=== PATIENT | female | born 1990 | race Caucasian/White ===

== ENCOUNTER 2021-04-14 14:57 | Outpatient (CLI) | payer BC ==
[~2021-04-14] VITALS: Ht 172.7 cm; Wt 83.2 kg
[2021-04-14 15:05] VITALS: BP 135/93; PULSE 103; TEMP 98.2
[2021-04-14] MEDS ORDERED: PRENATAL FORMU1 EAC3 PO (15:18)
--- NOTE | 2021-04-14 15:38 | NUR ---
1505 PATIENT HERE FOR COMPLAINTS THAT PANTS GOT WET AT RESTORATION TODAY AND NOT SURE WHAT IT WAS. EFM ON FHT [address] BABY VERY ACTIVE AND ACCELERATIONS NOTED. AMNIOTRACE USED TO SWAB OUTSIDE AND INSIDE VAGINA, NEGATIVE. NO SVE DONE DUE TO LOW PLACENTA AND NO CONTRACTIONS. PLACED PATIENT FLAT IN BED, NO POOLING OF FLUID NOTED IN VAGINA. DR DUNBAR CALLED AT THIS TIME. ORDERS TO LET PATIENT AMBULATE IN HALLS AND THEN RESWAB. IF NO CHANGES MAY SEND HOME TO FOLLOW UP WITH DR FERGUSON.
[2021-04-14 15:45] VITALS: BP 110/73; PULSE 107
[2021-04-14 16:15] VITALS: BP 107/69; PULSE 75
--- NOTE | 2021-04-14 16:16 | NUR ---
1545 PATIENT WALKING HALLS WITH PAD AND PANTIES ON.
--- NOTE | 2021-04-14 16:18 | NUR ---
1615 BACK TO BED, DID NOT FEEL ANY LEAKING WHILE WALKING. PAD SWABBED WITH AMNIOTRACE NEGATIVE.
[2021-04-14 16:30] VITALS: BP 106/76; PULSE 97
--- NOTE | 2021-04-14 16:32 | NUR ---
NO CHANGES AND NO LEAKING NOTED. ALL DISCHARGE INSTRUCTIONS GIVEN AT THIS TIME, VERBAL UNDERSTANDING NOTED. DENIES NEEDS. PATIENT TO FOLLOW UP WITH DR FERGUSON ON THURSDAY IN OFFICE.
== END 2021-04-14 16:39 | disposition home or self-care (01) ==
LOC: LDRO 14:57
DX: Z34.93 Encounter for supervision of normal pregnancy, unspecified, third trimester (principal); Z3A.28 28 weeks gestation of pregnancy

== ENCOUNTER 2021-06-25 06:36 | Inpatient (IN) | payer BC ==
[~2021-06-25] VITALS: Ht 170.2 cm; Wt 90.0 kg
[~2021-06-25 06:36] MED LIST: PRENATAL FORMU1 EAC3 PO
[2021-06-26] VITALS (20 sets, daily range): BP systolic 91–118; BP diastolic 47–90; PULSE 69–116; TEMP 97.9–98.2
[2021-06-26 06:00] LABS: BASO # 0.1 K/mm3 (0.0-0.2); BASO % 0.8 % (0.0-2.0); EOS # 0.2 K/mm3 (0.0-0.7); EOS % 2.6 % (0.0-4.0); GRAN # 4.6 K/mm3 (1.4-6.5); GRAN % 60.5 % (42.2-75.2); HEMOGLOBIN 13.1 g/dl (12.5-16.0); LYMPH # 2.1 K/mm3 (1.2-3.4); LYMPH % 26.9 % (20.0-51.0); MEAN CELL VOLUME 88 fl (80.0-100.0); MEAN CORPUSCULAR HEMOGLOBIN 31 pg (27-31); MEAN CORPUSCULAR HGB CONC 35 g/dl (33.0-37.0); MEAN PLATELET VOLUME 11.6 fl (7.4-10.4); MONO # 0.7 K/mm3 (0.1-0.6); MONO % 8.5 % (1.7-9.3); PLATELET COUNT 200 K/mm3 (130-400); REDCELL DISTRIBUTION WIDTH-CV 13.1 % (11.5-14.5)
[2021-06-27 04:45] VITALS: BP 101/60; PULSE 76; TEMP 97.6
[2021-06-27 08:00] VITALS: BP 110/68; PULSE 78; TEMP 97.4
[2021-06-27] MEDS ORDERED: ROXICODONE 55 MG/TAB PO (08:57)
[2021-06-27] MEDS ORDERED: IBU600 MG PO (08:57)
[2021-06-27 16:00] VITALS: BP 111/73; PULSE 71; TEMP 97.6
[2021-06-27 20:20] VITALS: BP 122/72; PULSE 83; TEMP 97.9
[2021-06-27 20:50] VITALS: BP 122/72; PULSE 83; TEMP 97.9
[2021-06-28 10:10] VITALS: BP 143/77; PULSE 77; TEMP 97.2
== END 2021-06-28 11:10 | disposition home or self-care (01) | DRG 788 ==
LOC: OB 06-26 05:27
PROVIDERS: ADMIT Obstetrics & Gynecology
PROC: 10D00Z1 Extraction of Products of Conception, Low, Open Approach (ICD-10-PCS; principal; 2021-06-26)
DX: O34.211 Maternal care for low transverse scar from previous cesarean delivery (principal); Z3A.39 39 weeks gestation of pregnancy; Z37.0 Single live birth
CPT/HCPCS: J0690; J1885; J2175; J2370; J2405; J2590; J7120